=== PATIENT | male | born 1930 | race Caucasian/White ===

== ENCOUNTER 2017-04-03 10:43 | Emergency (ER) | payer OTHER ==
[~2017-04-03] VITALS: Ht 172.7 cm; Wt 98.7 kg
[~2017-04-03 10:43] MED LIST: ACET-1311 PO; AMLO-110 PO; ATEN25TA PO; ATOR-22 PO; ATRIN INH; CALC600T37 PO; CHOL100010 PO; CITA10TA8 PO; CITA20TA9 PO; COEN1CAP17 PO; CYAN10005 PO; DOXY100C2 PO; FINA5TAB PO; ISOS60TA2 PO; LISI-461 PO; MULT-506 PO; NTRGSL/4 UT; OMEG10007 PO; SYMIN/8045 INH
[2017-04-03 10:53] VITALS: TEMP 37; Ht 172.7 cm; Wt 98.7 kg
[2017-04-03] MEDS ORDERED: CHOL100041 PO (11:23)
--- NOTE | 2017-04-03 12:05 | EMERGENCY ROOM VISIT NOTE ---
ED Visit Note First contact with patient: 11:20 CHIEF COMPLAINT: Left Foot pain HISTORY OF PRESENT ILLNESS: This 86-year-old male patient presents to the emergency department, ambulatory, complaining of swelling and pain in the plantar aspect of the left foot, worse with weight bearing. The patient denies any injury or increased activity. He states the pain has been going on for approximately 2-3 weeks, and he has not seen a provider regarding the pain. He describes the pain as "like a spur". He states it mostly hurts in the arch of the foot, and only while weightbearing. He describes it as sharp with walking. He states for a few days, he has occasionally gotten an ache in that foot, but denies any specific injury. He does state today that he feels his left ankle may be a little more swollen than normal, and the skin appears to be slightly more red. The patient rates the pain as 0/10 currently. The patient has not had relief of the pain, however, he has not taken medication, as the pain is only with ambulation. He states he has been more sedentary than usual due to the pain and has been using his walker to help relieve pressure from the foot. The patient is able to walk. No numbness or weakness. No ankle pain. There are no lacerations of the foot. The patient is able to move all of their toes and their ankle without pain. No previous fracture to this foot, but the patient states "years ago", he did fracture his lower leg (uncertain which bone specifically). REVIEW OF SYSTEMS: GENERAL: A 6 system review of systems was completed with positives and pertinent negatives in the HPI. ALLERGIES: None MEDICATIONS: See list PMH: HTN SOCIAL HISTORY: The patient lives locally with family. He denies drug, alcohol, tobacco use. PHYSICAL EXAM: Vital Signs: Reviewed Nurse's notes, vital signs stable. GENERAL : This is an 86-year-old white male, in no acute distress, but appears in pain, well-developed, well-nourished. MUSCULOSKELATAL: There is no visual deformity of the left foot. There is mild erythema without ecchymosis. There is no warmth. There is tenderness and swelling over the ankle, but not of the left foot. There is no tenderness over the lateral or medial malleolus. Mild tenderness to palpation of the distal tibia, but no calf tenderness. The range of motion of the foot and ankle is full. There is tenderness over the plantar fascia. The skin is intact and there are no lacerations or puncture wounds. Dorsalis pedis pulse 2+. Capillary refill less than 2 seconds. RADIOLOGY: L ANKLE MIN 3 VIEWS ROUTINE CLINICAL HISTORY: 86 years-old Male presenting with left ankle pain/swelling. TECHNIQUE: Frontal, mortise, and lateral views of the left ankle were obtained. COMPARISON: 06/24/2014. FINDINGS: Unchanged calcification at the inferior pole of the medial malleolus consistent with chronic avulsion injury. Soft tissue swelling at the ankle is greatest over the medial malleolus. The ankle mortise is intact. No acute fracture or malalignment. Diffuse subcutaneous edema extends into the lower leg. Bone spur at the origin of the plantar fascia. IMPRESSION: No acute osseous injury of the left ankle. Electronically signed by: Kameron Barney M.D. 04/03/2017 12:10 PM Dictated Date/Time: 04/03/2017 12:09 PM L FOOT MIN 3 VIEWS ROUTINE CLINICAL HISTORY: 86 years-old Male presenting with left foot pain/swelling. TECHNIQUE: Frontal, oblique, and lateral views of the left foot were obtained. COMPARISON: None. FINDINGS: Marginal erosion with sclerotic margin at the medial head of the first metatarsal with mild overlying soft tissue swelling. No soft tissue calcification. No acute fracture or malalignment. Osteopenia suspected. Bone spur at the origin of the plantar fascia. Degenerative change noted in the midfoot. IMPRESSION: Erosion at the head of the first metatarsal suggests a history of gout. No acute osseous injury. Electronically signed by: Kameron Barney M.D. 04/03/2017 12:13 PM Dictated Date/Time: 04/03/2017 12:11 PM ULTRASOUND L VENOUS DOPP LOWER EXT UNILAT CLINICAL HISTORY: left lower extremity swelling/redness COMPARISON STUDY: No previous studies for comparison. FINDINGS: Real-time and color flow Doppler imaging were performed. Flow was seen within the femoral, popliteal and calf veins with no intraluminal thrombus demonstrated. The saphenous vein is patent. IMPRESSION: No evidence of left lower extremity DVT. Electronically signed by: Chris Gunderson M.D. 04/03/2017 12:39 PM Dictated Date/Time: 04/03/2017 12:39 PM EMERGENCY DEPARTMENT COURSE: I examined the patient. An X-ray of the left ankle and foot was reviewed by myself and radiologist and reveals bone spur at the origin of the plantar fascia. The patient was encouraged to use arch supports, or consider switching out his older shoes for newer shoes. The patient was encouraged to check his feet daily, especially if he is using arch supports within his existing shoes, as they can cause ulcers or other skin breakdown which the patient may not realize due to his neuropathy. The patient was encouraged to use his walker and were good, supportive footwear. I did encourage him to monitor for any signs of infection, and did encourage him to follow up with his primary care and consider podiatry referral. Discharge instructions reviewed. The patient was discharged home in good condition. The patient was seen and evaluated by Dr. Valero. I attest that I have personally reviewed the patient's current medication list. Patient was found to have normal blood pressure on screening and does not require follow-up. DIFFERENTIAL DIAGNOSIS: Plantar fasciitis, DVT, charcot joint, cellulitis, fracture, contusion, sprain, strain, malignancy, and others DIAGNOSIS: Bone spur, plantar fasciitis Problem List Medical Problems: (1) Atrial fibrillation Status: Chronic (2) CAD (coronary artery disease) Status: Chronic (3) COPD (chronic obstructive pulmonary disease) Status: Chronic (4) HTN (hypertension) Status: Chronic (5) [place] (myocardial infarction) Status: Resolved (6) Neuropathy Status: Chronic Surgical Problems: (1) H/O heart artery stent Status: Resolved (2) Hx of CABG Status: Resolved Current/Historical Medications Scheduled Amlodipine (Norvasc), 5 MG PO DAILY Atenolol (Tenormin), 25 MG PO BID Atorvastatin (Lipitor), 20 MG PO DAILY Budesonide/Formoterol Fumarate (Symbicort 80/4.5 Inhaler), 2 PUFFS INH BID Calcium (Calcium), 600 MG PO DAILY Cholecalciferol (D 1000), 1,000 UNITS PO DAILY Citalopram Hydrobromide (Celexa), 10 MG PO DAILY Citalopram Hydrobromide (Celexa), 20 MG PO DAILY Coenzyme Q10 (Ubidecarenone) (Co Q 10), 400 MG PO DAILY Cyanocobalamin (Vitamin B-12), 2,000 MCG PO DAILY Finasteride (Proscar), 5 MG PO DAILY Fish Oil ([place]-3), 1 CAP PO DAILY Ipratropium [place] (Atrovent Hfa), 2 PUFF INH DAILY Isosorbide Mononitrate (Imdur Ext Rel), 30 MG PO QAM Lisinopril (Zestril), 10 MG PO DAILY Multivitamin (Multivitamin), 1 TAB PO DAILY Nitroglycerin (Nitrostat), 0.4 MG UT PRN Scheduled PRN Acetaminophen (Tylenol), 650 MG PO UD PRN for Pain or Fever Allergies Coded Allergies: No Known Allergies (Verified , 04/03/17) Vital Signs Date Time Temp Pulse Resp B/P (MAP) Pulse Ox O2 Delivery O2 Flow Rate FiO2 04/03/17 13:38 81 18 161/79 95 04/03/17 13:21 81 18 161/79 95 Room Air 04/03/17 10:53 37.0 78 16 173/81 94 Room Air Departure Information Impression Primary Impression: Plantar fasciitis of left foot Additional Impression: Bone spur Dispostion Home / Self-Care Condition GOOD Referrals Tad Pulido D.O. (PCP) Patient Instructions ED Plantar Fasciitis, My [facility] Additional Instructions You seen in the emergency department today for left foot pain. X-ray did show evidence of a spur near the plantar fascia. I do suspect a plantar fasciitis of the cause of her pain. Ultrasound did rule out blood clot. As discussed, you should freeze a plastic water bottle, and several times daily , rule this underneath the affected foot to help with inflammation and pain. Please use a barrier device such as a sock between the ice and your skin. You may want to consider arch supports for your shoes. Due to your neuropathy, I would be cautious with placing anything in the shoe which was not specifically made for your foot or the shoe. You should be certain to be checking your feet daily. You can do this by placing a mirror on the floor so you can observe your feet through the mirror each day to avoid obtaining sores or infections which you may not feel directly. Please monitor the foot for worsening redness or swelling. If these occur, follow up with the PCP or return to the emergency department, as it could be a skin infection. You should follow-up with your PCP later this week for recheck. You may want to consider referral to a scientist/engineer for further evaluation and management. Return to the emergency department for worsening discoloration, swelling, pain, decreased sensation, inability to walk on the foot, fever, chills, nausea, vomiting, or other concerning symptoms. Problem Qualifiers
--- NOTE | 2017-04-03 12:11 | DIAGNOSTIC IMAGING REPORT ---
L ANKLE MIN 3 VIEWS ROUTINE CLINICAL HISTORY: 86 years-old Male presenting with left ankle pain/swelling. TECHNIQUE: Frontal, mortise, and lateral views of the left ankle were obtained. COMPARISON: 06/24/2014. FINDINGS: Unchanged calcification at the inferior pole of the medial malleolus consistent with chronic avulsion injury. Soft tissue swelling at the ankle is greatest over the medial malleolus. The ankle mortise is intact. No acute fracture or malalignment. Diffuse subcutaneous edema extends into the lower leg. Bone spur at the origin of the plantar fascia. IMPRESSION: No acute osseous injury of the left ankle. Electronically signed by: Kameron Barney M.D. 04/03/2017 12:10 PM Dictated Date/Time: 04/03/2017 12:09 PM
--- NOTE | 2017-04-03 12:14 | DIAGNOSTIC IMAGING REPORT ---
L FOOT MIN 3 VIEWS ROUTINE CLINICAL HISTORY: 86 years-old Male presenting with left foot pain/swelling. TECHNIQUE: Frontal, oblique, and lateral views of the left foot were obtained. COMPARISON: None. FINDINGS: Marginal erosion with sclerotic margin at the medial head of the first metatarsal with mild overlying soft tissue swelling. No soft tissue calcification. No acute fracture or malalignment. Osteopenia suspected. Bone spur at the origin of the plantar fascia. Degenerative change noted in the midfoot. IMPRESSION: Erosion at the head of the first metatarsal suggests a history of gout. No acute osseous injury. Electronically signed by: Kameron Barney M.D. 04/03/2017 12:13 PM Dictated Date/Time: 04/03/2017 12:11 PM
--- NOTE | 2017-04-03 12:16 | EMERGENCY ROOM VISIT NOTE ---
ED Visit Note First contact with patient: 11:20 This Patient was discussed with the physician assistant art director, Sophie Gonzalez PA-C. The pertinent historical and physical exam findings were confirmed. I agree with the studies ordered and with the interpretations of these studies. I agree with the disposition and care plan.
--- NOTE | 2017-04-03 12:40 | DIAGNOSTIC IMAGING REPORT ---
ULTRASOUND L VENOUS DOPP LOWER EXT UNILAT CLINICAL HISTORY: left lower extremity swelling/redness COMPARISON STUDY: No previous studies for comparison. FINDINGS: Real-time and color flow Doppler imaging were performed. Flow was seen within the femoral, popliteal and calf veins with no intraluminal thrombus demonstrated. The saphenous vein is patent. IMPRESSION: No evidence of left lower extremity DVT. Electronically signed by: Chris Gunderson M.D. 04/03/2017 12:39 PM Dictated Date/Time: 04/03/2017 12:39 PM
[2017-04-03 13:38] VITALS: BP 161/79; PULSE 81; O2SAT 95
== END 2017-04-03 13:32 | disposition home or self-care (01) ==
LOC: C.EDB 10:46 → C.EDD 13:32
DX: M72.2 Plantar fascial fibromatosis (principal); M77.32 Calcaneal spur, left foot; I10 Essential (primary) hypertension; I48.91 Unspecified atrial fibrillation; I25.10 Atherosclerotic heart disease of native coronary artery without angina pectoris; J44.9 Chronic obstructive pulmonary disease, unspecified; G62.9 Polyneuropathy, unspecified; I25.2 Old myocardial infarction